=== PATIENT | female | born 1995 | race African-American/Black ===

== ENCOUNTER 2016-10-08 15:45 | Emergency (ER) | payer BC ==
[~2016-10-08] VITALS: Ht 165.1 cm; Wt 52.7 kg
[~2016-10-08 15:45] MED LIST: BCPILLS PO; PRED20TA2 PO
[2016-10-08 15:55] VITALS: TEMP 37.5; Ht 165.1 cm; Wt 52.7 kg
--- NOTE | 2016-10-08 16:08 | EMERGENCY ROOM VISIT NOTE ---
History First contact with patient: 15:59 Chief Complaint: URINARY SYMPTOMS Stated Complaint: PAIN IN BLADDER Nursing Triage Summary: Pt states, "I have really bad pressure in my bladder. It starts when I am about to finish peeing and there is a sharp pain in my bladder." Pt reports irregular period. "It came for two weeks in Aug. I had it Oct.01 and I am bleeding again. I don't know if it's because I'm off my control." Sx began yesterday. Denies hx of UTI. Denies flank pain. History of Present Illness The patient is a 21 year old female who presents to the Emergency Room with complaints of urinary discomfort. She reports she has been on her period for a few days, but since yesterday when she passes urine, mid-stream she feels pain in her urethra/bladder. She has never had a UTI before so wasn't sure what to do. She reports she was told to drink a lot of water so has been. She does not report a fever, chills, or back pain. She does report her periods have been irregular, and she was bleeding most of August with a few weeks of not bleeding intermittently. Review of Systems See HPI for pertinent positives & negatives. A total of 10 systems reviewed and were otherwise negative. Past Medical/Surgical History Breast biopsy for lumps in R breast - negative Family History No pertinent FHx Social History Smoking Status: Never Smoker Current/Historical Medications Scheduled Control Pills ( Control Pills), 1 TAB PO DAILY Nitrofurantoin Monohyd Macrocr (Macrobid), 100 MG PO BID Scheduled PRN Albuterol Hfa (Ventolin Hfa), 2-4 PUFFS INH Q6H PRN for SOB/Wheezing Allergies Coded Allergies: Cefixime (Verified Allergy, Unknown, UNKNOWN - CHILDHOOD, 07/03/16) Sodium Benzoate (Verified Allergy, Unknown, UNKNOWN - CHILDHOOD, 07/03/16) Physical Exam Vital Signs Date Time Temp Pulse Resp B/P Pulse Ox O2 Delivery O2 Flow Rate FiO2 10/08/16 16:43 92 20 123/84 100 10/08/16 15:55 37.5 105 18 123/72 98 Room Air Physical Exam GENERAL: Awake, alert, well-appearing, in no acute distress. Walking around room , drinking PO liquids. HENT: Normocephalic, atraumatic. Oropharynx unremarkable. EYES: Normal conjunctiva. Sclera non-icteric. NECK: Supple. No nuchal rigidity. FROM. No JVD. RESPIRATORY: Clear to auscultation. CARDIAC: Regular rate, normal rhythm. Extremities warm and well perfused. Pulses equal. ABDOMEN: Soft, non-distended. Mild suprapubic tenderness. No rebound or guarding. No masses. MUSCULOSKELETAL: Chest examination reveals no tenderness. The back is symmetrical on inspection without obvious abnormality. There is no CVA tenderness to palpation. No joint edema. LOWER EXTREMITIES: Calves are equal size bilaterally and non-tender. No edema. No discoloration. NEURO: Normal sensorium. No sensory or motor deficits noted. SKIN: No rash or jaundice noted. Medical Decision & Procedures Laboratory Results Test 10/08/16 16:12 Urine Color SUBHASH Urine Appearance CLOUDY (CLEAR) Urine pH 6.5 (4.5-7.5) Urine Specific [place] 1.025 (1.000-1.030) Urine Protein 3+ (NEG) Urine Glucose (UA) 1+ (NEG) Urine Ketones NEG (NEG) Urine Occult Blood 3+ (NEG) Urine Nitrite POS (NEG) Urine Bilirubin NEG (NEG) Urine Urobilinogen NEG (NEG) Urine Leukocyte Esterase TRACE (NEG) Urine RBC >30 /hpf (0-4) Urine WBC >30 /hpf (0-5) Urine Epithelial Cells >30 /lpf (0-5) Urine Bacteria 2+ (NEG) Urine Mucus PRESENT (NONE PRSENT) ED Course 16:00: The patient was placed in room C7. She was walking around comfortably and drinking liquids from her water bottle. 16:20: The patient provided a urine dipstick and had 4+ protein, 1+ nitrites, WBC+. Microscopy and culture were pending. 1622: I discussed the case with my attending Dr Velez. Medical Decision 21 yo F with dysuria, urinary hesitancy, frequency, and hematuria - differential includes UTI, pyelonephritis, cystitis, or kidney stone. The patient looked comfortable and was tolerating PO water. She provided a urine sample, which was noticeably dark in color. Her urinalysis was suggestive of infection, and it will be sent for culture as well. She was started on Macrobid and advised to follow up with her PCP for her irregular periods. She was discharged in good condition. Impression Primary Impression: Urinary tract infection Departure Information Prescriptions Nitrofurantoin Monohyd Macrocr (Macrobid) 100 Mg Cap 100 MG PO BID for 7 Days, #14 CAP Prov: Leonela Mcmillan MD 10/08/16 Referrals No Doctor, Assigned (PCP) Patient Instructions My [facility] Resident Tracking Resident Involvement: Resident Care Provided Care Provided: Pediatric Care ED
--- NOTE | 2016-10-08 16:23 | EMERGENCY ROOM VISIT NOTE ---
ED Visit Note First contact with patient: 15:59 Resident Physician Supervision Note: I was present with Dr. Mcmillan during the history and exam. I discussed the case with the resident and agree with the findings and plan as documented in the note. Documented By: Henri Velez Current/Historical Medications Scheduled Control Pills ( Control Pills), 1 TAB PO DAILY Prednisone (Prednisone Tab), 3 TAB PO DAILY Allergies Coded Allergies: Cefixime (Verified Allergy, Unknown, UNKNOWN - CHILDHOOD, 07/03/16) Sodium Benzoate (Verified Allergy, Unknown, UNKNOWN - CHILDHOOD, 07/03/16) Vital Signs Date Time Temp Pulse Resp B/P Pulse Ox O2 Delivery O2 Flow Rate FiO2 10/08/16 15:55 37.5 105 18 123/72 98 Room Air Laboratory Results Test 10/08/16 16:12 Departure Information Referrals No Doctor, Assigned (PCP) Patient Instructions My [facility]
[2016-10-08 16:24] LABS: MANUAL MICROSCOPIC REQUIRED? YES; URINE APPEARANCE CLOUDY (CLEAR); URINE COLOR AMBER; URINE NITRITE POS (NEG); URINE PH 6.5 (4.5-7.5); URINE SPECIFIC GRAVITY 1.025 (1.000-1.030); UROBILINOGEN NEG (NEG)
[2016-10-08 16:34] LABS: REVIEW REQ? NO; URINE BILIRUBIN NEG (NEG)
[2016-10-08] MEDS ORDERED: NITR-5 PO (16:35)
[2016-10-08] MEDS ORDERED: VNTHFA/IN INH (16:37)
[2016-10-08 16:42] LABS: URINE RBC >30 /hpf (0-4)
[2016-10-08 16:43] VITALS: BP 123/84; PULSE 92; O2SAT 100
[2016-10-08 16:43] LABS: URINE BACTERIA 2+ (NEG); URINE MUCUS PRESENT (NONE PRSENT); URINE WBC >30 /hpf (0-5); ZZUR CULT IF INDIC CLEAN CATCH YES
== END 2016-10-08 16:45 | disposition home or self-care (01) ==
LOC: C.EDB 15:46 → C.EDC 16:45
DX: N39.0 Urinary tract infection, site not specified (principal)